=== PATIENT | male | born 1970 | race Hispanic/Latino ===

== ENCOUNTER 2018-01-06 15:53 | Inpatient (IN) | payer OTHER ==
[2018-01-06 16:50] LABS: BASO % 0.6 % (0.0-2.0); EOS % 0.7 % (0.0-4.0); HEMOGLOBIN 11.4 g/dL (12.0-18.0); LYMPH # 1.1 K/uL (1.0-4.3); LYMPH % 16.2 % (20.0-40.0); MEAN CELL VOLUME 87.4 fL (80.0-94.0); MEAN CORPUSCULAR HGB CONC 33.2 g/dL (33.0-37.0); MEAN PLATELET VOLUME 7.6 fL (7.2-11.7); MONO # 0.5 K/uL (0.0-0.8); MONO % 8.2 % (0.0-10.0); NEUT # 4.8 K/uL (1.8-7.0); NEUT % 74.3 % (50.0-75.0); RBC 3.95 Mil/uL (4.40-5.90); RED CELL DISTRIBUTION WIDTH 14.8 % (11.5-14.5); WHITE BLOOD COUNT 6.5 K/uL (4.8-10.8)
[2018-01-06 17:05] LABS: ALB/GLOB RATIO 0.8 (1.0-2.1); ALBUMIN 3.4 g/dL (3.5-5.0); ALT/SGPT 301 U/L (21-72); AST/SGOT 310 U/L (17-59); BLOOD UREA NITROGEN 14 mg/dL (9-20); CALCIUM 8.3 mg/dl (8.6-10.4); GFR AFRICAN-AMERICAN > 60; GFR NON-AFRICAN AMERICAN > 60
--- NOTE | 2018-01-06 17:05 | RAD ---
Date of service: 01/06/2018 PROCEDURE: Radiographs of the Right Shoulder HISTORY: pain COMPARISON: No prior. FINDINGS: BONES: No fracture seen. JOINTS: The left acromioclavicular joint space appears widened DIS 8 mm. The sub articular osseous ends are partially demineralized with subchondral cystic and/or erosive changes here. This ill-defined ossific density cephalad to the lateral left clavicle. An also within the apparent acromioclavicular joint space The glenohumeral joint appears unremarkable. SOFT TISSUES: Normal. OTHER FINDINGS: None. IMPRESSION: Left acromioclavicular joint space widening with subcortical cystic change- cortical ill definition /erosive changes. Ossific debris here. An erosive arthrosis is 1 consideration. Infection including a septic as well as an aseptic arthropathy is not excluded. Clinical correlation is essential. Comments: Study marked for PA review.
--- NOTE | 2018-01-06 17:18 | C.PDOC ---
History Of Present Illness 47yo male, comes to ER for detox from heroin. Patient also states he recently became homeless x 4 months and is complaining of blisters to his bilateral heel area and an itchy and painful insect bite to his left shoulder area. Otherwise, denies any fever, chills, suicidal or homicidal ideation. Patient offers no additional medical complaints. Time Seen by Provider: 01/06/18 16:34 Chief Complaint (Nursing): Substance Abuse History Per: Patient Associated Symptoms: denies: Suicidal Thoughts, Suicidal Plan Past Medical History Reviewed: Historical Data, Nursing Documentation, Vital Signs Vital Signs: Last Vital Signs Temp 98.7 F 01/06/18 17:59 Pulse 73 01/06/18 17:59 Resp 16 01/06/18 17:59 BP 132/76 01/06/18 17:59 Pulse Ox 100 01/06/18 18:12 - Medical History PMH: No Chronic Diseases Surgical History: No Surg Hx Family History: States: No Known Family Hx - Social History Hx Alcohol Use: No Hx Substance Use: Yes (heroin, cocine) - Immunization History Hx Tetanus Toxoid Vaccination: No Hx Influenza Vaccination: No Hx Pneumococcal Vaccination: No Review Of Systems Except As Marked, All Systems Reviewed And Found Negative. Constitutional: Negative for: Fever, Chills Cardiovascular: Negative for: Chest Pain Respiratory: Negative for: Shortness of Breath Gastrointestinal: Negative for: Abdominal Pain Skin: Positive for: Other (insect bite left shoulder; blisters bilateral heels) Psych: Negative for: Suicidal ideation Physical Exam - Physical Exam Appears: Non-toxic, No Acute Distress Skin: Warm, Dry, Other (2.5cm area of erythema to left AC joint area; no opening , drainage or fluctuance noted. Open, dried and healing blisters to bilateral heels; no signs of infection. ) Head: Normacephalic Eye(s): bilateral: Normal Inspection Neck: Supple Chest: Symmetrical Cardiovascular: Rhythm Regular Respiratory: Normal Breath Sounds Gastrointestinal/Abdominal: Soft Back: Normal Inspection Extremity: Normal ROM, No Pedal Edema Neurological/Psych: Oriented x3, Normal Speech, Normal Cognition, Normal Motor, Normal Sensation ED Course And Treatment - Laboratory Results Result Diagrams: 01/06/18 16:47 01/06/18 16:47 O2 Sat by Pulse Oximetry: 100 (RA) Pulse Ox Interpretation: Normal - Other Rad Left Shoulder X-Ray: Read By Radiologist Interpretation: FINDINGS: BONES: No fracture seen. JOINTS: The left acromioclavicular joint space appears widened DIS 8 mm. The sub articular osseous ends are partially demineralized with subchondral cystic and/or erosive changes here. This ill-defined ossific density cephalad to the lateral left clavicle. An also within the apparent acromioclavicular joint space. The glenohumeral joint appears unremarkable. SOFT TISSUES: Normal. OTHER FINDINGS : None. IMPRESSION: Left acromioclavicular joint space widening with subcortical cystic change- cortical ill definition /erosive changes. Ossific debris here. An erosive arthrosis is 1 consideration. Infection including a septic as well as an aseptic arthropathy is not excluded. Clinical correlation is essential. Progress Note: Labs, UA, XR left shoulder ordered. Crisis eval requested. Patient given initial dose of clindamycin. 0. Patient is medically cleared but needs to take Clindamycin 300mg QID for the next seven days. Discussed with social worker school, patient to be admitted under Dr. Page for drug abuse. Disposition - Disposition Disposition Time: 18:11 Condition: STABLE Forms: [employer] [facility] (Italian) - Clinical Impression Clinical Impression: Drug dependence, Infected insect bite of shoulder - PA / [employer] / Resident Statement MD/DO has reviewed & agrees with the documentation as recorded. - Scribe Statement The provider has reviewed the documentation as recorded by the Rik Robertson Provider Attestation: All medical record entries made by the Rik were at my direction and personally dictated by me. I have reviewed the chart and agree that the record accurately reflects my personal performance of the history, physical exam, medical decision making, and the department course for this patient. I have also personally directed, reviewed, and agree with the discharge instructions and disposition. Decision To Admit - Pt Status Changed To: Hospital Disposition Of: Inpatient - Admit Certification Admit to Inpatient:: After my assessment, the patient will require hospitalization for at least two midnights. This is because of the severity of symptoms shown, intensity of services needed, and/or the medical risk in this patient being treated as an outpatient. - InPatient: Physician Admission Certification: I certify that this patient requires 2 or more midnights of care for the following reason:: will need more than 2 days for detox - . Bed Request Type: Detox Patient Diagnosis: Drug dependence, Infected insect bite of shoulder
[2018-01-06 17:29] LABS: SQUAMOUS EPITHIAL < 1 /hpf (0-5); URINE BILIRUBIN NEGATIVE (NEGATIVE); URINE BLOOD NEGATIVE (NEGATIVE); URINE CLARITY Clear (Clear); URINE COLOR Amber (YELLOW); URINE GLUCOSE (UA) NORMAL (Normal); URINE HYALINE CAST 0-2 /lpf (0-2); URINE LEUKOCYTE ESTERASE NEG Leu/uL (Negative); URINE PROTEIN 1+ mg/dL (NEGATIVE)
[2018-01-06 17:43] LABS: BARBITURATES, UR NEGATIVE (NEGATIVE); BENZODIAZEPINES, UR NEGATIVE (NEGATIVE); PHENCYCLIDINE, UR NEGATIVE (NEGATIVE)
[2018-01-06 17:44] LABS: OPIATES, UR POSITIVE (NEGATIVE)
--- NOTE | 2018-01-06 18:26 | PCM.BM ---
<Cynthia Hernandez - Last Filed: 01/06/18 18:25> Treatment Plan Problems - Problems identified on initial assessmt potiential for opiate withdrawal Date Initiated: 01/06/18 Time Initiated: 18:26 Assessment reference: NA Status: Active Treatment assets and liabiliti Patient Assests: ADL independent, negotiates basic needs Patient Liabilities: substance abuse, legal issue - Milieu Protocol Maintain good personal hygiene: daily Encourage regular showers, daily Remind patient to perform daily oral care, daily Assist patient to perform ADL's Maintain personal safety: every shift Educate patient to report safety concerns to staff, every shift Monitor environment for contraband/sharps Medication safety: Monitor for expected outcome, potential side effects: every shift, Assess barriers to learning: every shift, Assess readiness for medication education: every shift <Zuly Chang - Last Filed: 01/07/18 10:58> Family Contact Family contact name: Landon Velasco Family contacted how many times per week?: 1 - Goals for Treatment Patient goals for treatment: Complete detox and review aftercare options with family and counseling staff. Discharge/Continuing Care - Education Needs Education Needs: Family Medication, Family Diagnosis/Disease Process, Family Placement options, Family Community resources, Patient Medication, Patient Diagnosis/Disease Process, Patient Coping Skills, Patient Anger Management skills, Patient Placement options, Patient Community resources, Patient Health Practices/Safety (currently homeless) - Discharge Discharge Criteria: Ability to care for self, No longer exhibiting s/s of withdrawal, Reduction of target symptoms - Additional Comments 01/07/18 11:08 TBD. - Treatment Team Participation Discussed with Family/SO: No Was Patient/Family/SO present at Treatment Team Meeting: Yes <Nury Contreras - Last Filed: 01/07/18 17:52> - Diagnosis (1) Opioid use disorder, severe, dependence Status: Acute Interventions: 01/07/18 17:52 * Assess 7x/week regarding severity of withdrawal * Educate regarding risks, benefits, side effects and alternatives of medications * Use Motivational Interviewing for abstinence * Use CBT for relapse prevention * Medication management for withdrawal symptoms * Encourage medication assisted treatment *
[2018-01-07] MEDS ORDERED: Aluminum Hydroxide/Magnesium Hydroxide Susp (30 mL) PO PRN (00:24)
--- NOTE | 2018-01-07 11:34 | PCM.PSYCH ---
Initial Psychiatric Evaluation - Initial Psychiatric Evaluation Type of Admission: Voluntary Legal Status: Capacity Chief Complaint (in patient's own words): "I've been using heroin" History of Present Illness and Precipitating Events: HPI: Patient is a 47 year old male, single, unemployed, homeless with 30 year old daughter. Patient presented with his father who requested inpatient detox and substance treatment. He reportedly recently served 18 year sentence for theft, burglary possessions. He reportedly recently relapsed on cocaine and heroin [facility]. He was reportedly removed from the family house and became homeless due to his continued substance abuse. Patient states that he has been using 20 bags of heroin intravenously within the past month and smoking a dime bag of cocaine 4x a week. He reportedly has overdosed on heroin and Fentanyl multiple times since his release from [facility]. He was reportedly recently admitted to [facility] for opioid overdose and treated with Narcan. He admits to using marijuana and amphetamines intermittently. He states he has been to detox at [facility] and [facility]. Now complains of feeling cold, irritable, anxious, diffuse body aches, abdominal cramps, diarrhea. Past psychiatric admissions: Multiple admissions for detox Social hx: Currently homeless. Recently released from shelter. Heroin, 20 bags intravenously. Cocaine 4x a week. Denies alcohol use. PMH: none Psych: none as per patient Meds: none Allergies: NKDA Current Medications: Active Medications Generic Name Dose Route Start Last Admin Trade Name Freq PRN Reason Stop Dose Admin Acetaminophen 650 mg 01/07/18 00:24 Tylenol 325mg Tab PO Q4H PRN Fever greater than 101 F Al Hydrox/Mg Hydrox/Simethicone 30 ml 01/07/18 00:24 Maalox 30 Ml PO TID PRN Indigestion / Heartburn Clonidine HCl 0.1 mg 01/07/18 00:24 Catapres PO Q8 PRN COWS Score More or Equal to 5 Hydroxyzine HCl 25 mg 01/06/18 19:11 Atarax PO Q6 PRN Anxiety Loperamide HCl 2 mg 01/07/18 00:24 Imodium PO Q8 PRN Diarrhea Ondansetron HCl 4 mg 01/07/18 00:24 Zofran Tab PO Q8 PRN Nausea/Vomiting Pseudoephedrine HCl 60 mg 01/07/18 00:24 Sudafed Tab PO QID PRN Nasal/Sinus Congestion Trazodone HCl 50 mg 01/06/18 19:10 Desyrel PO HS PRN insomnia Past Psychiatric History - Past Psychiatric History Previous Treatment History: Inpatient Pertinent Medical Hx (Current Medical&Sleep Prob, Allergies): Allergies Allergy/AdvReac Type Severity Reaction Status Date / Time No Known Allergies Allergy Verified 01/06/18 16:16 No Known Home Med 01/06/18 Review of Systems - Psychiatric Psychiatric: Anxiety, Irritability. absent: Auditory Hallucinations, Homicidal Ideation, Paranoia, Suicidal Ideation, Visual Hallucinations Mental Status Examination - Personal Presentation Personal Presentation: Looks stated age - Affect Affect: Other Additional comments: Irritable, hostile - Motor Activity Motor Activity: Calm - Reliability in Providing Information Reliability in Providing Information: Fair - Speech Speech: Organized, Relevant, Coherent - Mood Mood: Depressed Additional comments: Angry - Formal Thought Process Formal Thought Process: No Impairment - Hallucinations/Delusions Additional comments: no hallucinations no delusions - Obsessions/Compulsions Obsessions: No Compulsions: No - Cognitive Functions Orientation: Person, Place, Situation, Time Sensorium: Alert Estimate of Intelligence: Below average Judgement: Imparied, as evidence by: Poor judgement Memory: Recent intact, as evidence by: Ability to recall events of the day - Risk Risk: Withdrawal, Diminished functioning - Strength & Assets Inventory Strength & Assets Inventory: Family support DSM 5 DX - DSM 5 DSM 5 Diagnosis: Opioid use disorder, severe Opioid withdrawal Cocaine use disorder - Recommended/Plan of Treatment Treatment Recommendations and Plan of Treatment: Opioid use disorder, severe Opioid withdrawal Tylenol 650mg PO Q4 PRN Maalox 30ml PO TID PRN Clonidine 0.1mg PO Q8 PRN Atarax 25mg PO Q6 PRN Loperamide 2mg PO Q8 PRN Zofran 4mg PO Q8 PRN Sudafed 60mg QID PRN Trazodone 50mg PO HS PRN All risks, benefits, and alternatives of medications discussed, and patient agreed and understood. Attend groups and activities Supportive therapy and psychoeducation CA for abstinence CBT for relapse prevention Encourage MAT Cocaine use disorder Attend groups and activities Supportive therapy and psychoeducation CA for abstinence CBT for relapse prevention Encourage MAT 35 mins Case discussed with Dr. Diane Karimi, PGY1
[2018-01-07 13:40] VITALS: O2SAT 100
[2018-01-08 08:57] VITALS: BP 128/82; PULSE 65; RESP 20; TEMP 98.3
--- NOTE | 2018-01-08 11:07 | PCM.PYCHDC ---
Mental Status Examination - Mental Status Examination Orientation: Person Discharge Summary - Discharge Note Consultations:: List each consultation separately and include: 1. Reason for request. 2. Findings. 3. Follow-up Summary of Hospital Course include:: 1. Description of specific treatment plan utilized for patients during their course of treatmen. 2. Summarize the time- course for resolution of acute symptoms and/or regressed behaviors. 3. Describe issues identified and worked on during hospitalization. 4. Describe medication utilized. 5. Describe medical problems identified and treated. 6. Reassessment of suicide risk - Diagnosis (1) Opioid use disorder, severe, dependence Status: Acute - Final Diagnosis (DSM 5) Condition upon Discharge: STABLE Disposition: AGAINST MEDICAL ADVICE
== END 2018-01-08 10:45 | disposition left against medical advice (07) | DRG 743 ==
LOC: C.ER 15:53 → C.9E 18:10 → C.7D 18:21
PROVIDERS: ADMIT Psychiatry & Neurology Psychiatry; ATTEND Psychiatry & Neurology Psychiatry
PROC: HZ2ZZZZ Detoxification Services for Substance Abuse Treatment (ICD-10-PCS; principal; 2018-01-06)
PROC: HZ52ZZZ Individual Psychotherapy for Substance Abuse Treatment, Cognitive-Behavioral (ICD-10-PCS; 2018-01-06)
PROC: HZ59ZZZ Individual Psychotherapy for Substance Abuse Treatment, Supportive (ICD-10-PCS; 2018-01-06)
PROC: HZ56ZZZ Individual Psychotherapy for Substance Abuse Treatment, Psychoeducation (ICD-10-PCS; 2018-01-06)
PROC: HZ42ZZZ Group Counseling for Substance Abuse Treatment, Cognitive-Behavioral (ICD-10-PCS; 2018-01-06)
PROC: HZ46ZZZ Group Counseling for Substance Abuse Treatment, Psychoeducation (ICD-10-PCS; 2018-01-06)
DX: F11.23 Opioid dependence with withdrawal (principal); S41.002A Unspecified open wound of left shoulder, initial encounter; L08.9 Local infection of the skin and subcutaneous tissue, unspecified; W57.XXXA Bitten or stung by nonvenomous insect and other nonvenomous arthropods, initial encounter; F14.10 Cocaine abuse, uncomplicated; Z59.0 Homelessness